=== PATIENT | female | born 1940 | race African-American/Black ===

== ENCOUNTER 2022-05-13 22:18 | Inpatient (IN) | payer OTHER ==
[~2022-05-13] VITALS: Ht 167.6 cm; Wt 77.1 kg
[2022-05-13] MEDS ORDERED: SODIUM CHLORIDE 0.9% 1,000 ML IV ONE (22:45)
[2022-05-13 23:47] LABS: BG BASE EXCESS -0.6 mmol/L (-2.0-2.0); BG CARBOXYHEMOGLOBIN 0.4 % (0.5-1.5); BG DEOXYHEMOGLOBIN 4.2 % (0.0-5.0); BG FRACTION INSPIRED OXYGEN 21; BG HCO3 ACT 24.5 mmol/L (22.0-26.0); BG METHEMOGLOBIN 0.2 % (0.0-1.5); BG OXYGEN SATURATION 95.8 % (92.0-98.5); BG OXYHEMOGLOBIN 95.2 % (94.0-97.0); BG PCO2 41.9 mmHg (35.0-45.0); BG PH 7.385 (7.350-7.450); BG PO2 81.7 mmHg (75.0-100.0); BG SAMPLE SITE LEFT RADIAL; BG TOTAL HEMOGLOBIN 12.7 g/dL (12.0-18.0); BG VENT MODE ROOM AIR
[2022-05-14 00:04] LABS: BASOPHILS % 0.3 % (0.0-2.0); EOSINOPHILS % 0.6 % (0.0-5.0); HEMATOCRIT. 38.2 % (36.0-48.0); HEMOGLOBIN. 12.8 g/dL (12.0-16.0); LYMPHOCYTES % 13.7 % (20.0-50.0); MEAN CORPUSCULAR HEMOGLOBIN 32.6 pg (28.0-32.0); MEAN CORPUSCULAR VOLUME 96.9 fL (81.0-99.0); MEAN PLATELET VOLUME 7.8 fl (7.4-10.4); MONOCYTES % 4.9 % (2.0-8.0); NEUTROPHILS % 80.5 % (40.0-76.0); PLATELET 271 x1000/uL (130-400); RED BLOOD CELL COUNT 3.94 mill/uL (4.2-5.4); RED CELL DISTRIBUTION WIDTH 13.7 % (11.6-14.6)
[2022-05-14 00:10] LABS: PROTHROMBIN TIME 10.3 sec (9.6-11.0)
[2022-05-14 00:16] LABS: CHLORIDE 107 mEq/L (98-107)
[2022-05-14 02:12] LABS: CLARITY URINE CLEAR (CLEAR); COLOR URINE YELLOW (YELLOW); KETONES URINE NEGATIVE (NEGATIVE); LEUKOCYTE ESTERASE URINE 2+ (NEGATIVE); NITRITE URINE NEGATIVE (NEGATIVE); OCCULT BLOOD URINE NEGATIVE (NEGATIVE); PROTEIN URINE NEGATIVE (NEGATIVE); SPECIFIC GRAVITY URINE 1.021 (1.005-1.030)
[2022-05-14] MEDS ORDERED: CEFTRIAXONE 1GM PREMIX 50 ML IV NR (03:00)
[2022-05-14 12:00] VITALS: BP 118/65
[2022-05-14] MEDS ORDERED: IPRATROPIUM/ALBUTEROL 0.5-3(2.5)MG/3ML NEB HHN SCH (15:00)
[2022-05-14] MEDS ORDERED: ONDANSETRON HCL 4MG/2ML INJ IV PRN (15:00)
[2022-05-14] MEDS ORDERED: ACETAMINOPHEN 325MG TABLET PO PRN (15:00)
[2022-05-14 16:00] VITALS: BP 126/59
[2022-05-14] MEDS: SODIUM CHLORIDE 0.45% 1,000 ML IV SCH (19:39)
[2022-05-14 20:00] VITALS: BP 138/66
[2022-05-14] MEDS ORDERED: ENOXAPARIN 30MG/0.3ML SYR SUBCUT SCH (21:00)
[2022-05-14] MEDS: IPRATROPIUM BROMIDE (0.02%) 0.5MG/2.5ML NEB HHN SCH (21:11)
[2022-05-14] MEDS: ALBUTEROL (0.083%) 2.5MG/3ML NEB HHN SCH (21:11)
[2022-05-15] VITALS: BP 121/64
[2022-05-15] MEDS: IPRATROPIUM BROMIDE (0.02%) 0.5MG/2.5ML NEB HHN SCH ×3 (00:31→12:24)
[2022-05-15] MEDS: ALBUTEROL (0.083%) 2.5MG/3ML NEB HHN SCH ×3 (00:31→12:25)
[2022-05-15] MEDS: SODIUM CHLORIDE 0.45% 1,000 ML IV SCH (02:16)
[2022-05-15] MEDS ORDERED: CEFTRIAXONE 1GM PREMIX 50 ML IV SCH (03:00)
[2022-05-15 04:00] VITALS: BP 134/62
[2022-05-15 08:00] VITALS: BP 131/73
[2022-05-15 12:00] VITALS: BP 116/50
[2022-05-15] MEDS ORDERED: SULF1TAB48 MT (13:10)
[2022-05-15 13:21] LABS: BASOPHILS % 0.6 % (0.0-2.0); EOSINOPHILS % 1.1 % (0.0-5.0); HEMOGLOBIN. 11.2 g/dL (12.0-16.0); LYMPHOCYTES % 24.4 % (20.0-50.0); MEAN PLATELET VOLUME 7.6 fl (7.4-10.4); MONOCYTES % 8.8 % (2.0-8.0); NEUTROPHILS % 65.1 % (40.0-76.0); PLATELET 233 x1000/uL (130-400); RED CELL DISTRIBUTION WIDTH 14.1 % (11.6-14.6)
[2022-05-15 13:37] LABS: CHLORIDE 111 mEq/L (98-107)
[2022-05-15 16:00] VITALS: BP 109/57
[2022-05-15] MEDS ORDERED: ENOXAPARIN 40MG/0.4ML SYR SUBCUT SCH (21:00)
== END 2022-05-15 19:10 | disposition home or self-care (01) | DRG 641 ==
LOC: ER 22:27 → 6EST 05-14 04:07 → EDBEDREQ 05-14 04:23 → EDBEDREQTM 05-14 04:23 → EDBEDREQSVC 05-14 04:23
PROVIDERS: ADMIT Internal Medicine; ATTEND Internal Medicine
DX: E86.0 Dehydration (principal); N39.0 Urinary tract infection, site not specified; E86.1 Hypovolemia; I95.9 Hypotension, unspecified; E11.9 Type 2 diabetes mellitus without complications; G89.29 Other chronic pain; I10 Essential (primary) hypertension; Z90.710 Acquired absence of both cervix and uterus; Z88.2 Allergy status to sulfonamides
CPT/HCPCS: 36415; 36600; 70551; 71045; 74176; 80053; 81003; 82375; 82805; 82962; 83036; 83605; 83880; 84145; 84484; 85025; 87804; 93005; 94640; 97161; 99291; C1893; J0696; J1650; J7030